=== PATIENT | female | born 1985 | race Caucasian/White ===

== ENCOUNTER 2018-10-31 13:20 | Emergency (ER) | payer MEDICAID, OTHER ==
[2018-10-31 14:42] LABS: APPEARANCE,URINE CLOUDY (CLEAR); BILIRUBIN,URINE NEGATIVE (NEGATIVE); COLOR,URINE YELLOW (YELLOW); GLUCOSE, URINE (UA) NEGATIVE (NEGATIVE); KETONES,URINE NEGATIVE (NEGATIVE); LEUKOCYTE ESTERASE ,URINE NEGATIVE (NEGATIVE); NITRATE,URINE NEGATIVE (NEGATIVE); OCCULT BLOOD,URINE SMALL (NEGATIVE); PROTEIN,URINE NEGATIVE (NEGATIVE); UROBILINOGEN,URINE 0.2 mg/dL (0.2-1.0)
[2018-10-31 14:44] LABS: HCG,QUAL RESULT NEGATIVE (NEGATIVE)
[2018-10-31 15:07] LABS: RAPID GROUP A STREP NEGATIVE (NEGATIVE)
[2018-10-31 15:15] LABS: BACTERIA,URINE Few /HPF (None Seen)
[2018-10-31 15:16] LABS: MUCUS,URINE Few LPF (None Seen); SQUAMOUS EPITHELIAL CELL,UR Moderate /HPF (0-2)
== END 2018-10-31 15:23 | disposition home or self-care (01) ==
LOC: EDH 13:20
DX: B34.9 Viral infection, unspecified (principal); L50.9 Urticaria, unspecified
CPT/HCPCS: 81001; 81025; 87804; 87880